=== PATIENT | female | born 1985 | race Caucasian/White ===

== ENCOUNTER 2017-07-16 10:47 | Emergency (ER) | payer OTHER ==
--- NOTE | 2017-07-16 11:44 | EDPHY ---
H & P Stated Complaint: COUGH, WHEEZING X 5 DAYS HPI/ROS: Chief complaint: Cold symptoms History of present illness: This is a 32-year-old female who presents to the emergency department for cold symptoms. She reports fever, runny nose, nasal congestion, cough and some body aches. She has developed a slight sore throat today. She denies associated signs or symptoms including no trouble breathing, no rash. She works in the healthcare industry. She did receive a flu shot this year. Review of systems: A 10 point review of systems was obtained and other than described above was negative - Personal History Current Tetanus/Diphtheria Vaccine: Yes Current Tetanus Diphtheria and Acellular Pertussis (TDAP): Yes - Medical/Surgical History Hx Asthma: Yes Hx Chronic Respiratory Disease: No Hx Diabetes: No Hx Cardiac Disease: No Hx Renal Disease: No Hx Cirrhosis: No Hx Alcoholism: No Hx HIV/AIDS: No Hx Splenectomy or Spleen Trauma: No - Social History Smoking Status: Never smoked - Physical Exam Exam: General Appearance: Alert, no distress. Eyes: Pupils equal and round no pallor or injection. ENT, Mouth: Tympanic membranes, external auditory canals, external ears and surrounding soft tissue including over the mastoids are unremarkable. Nasopharynx is not injected. There is no rhinorrhea. Oropharynx is mildly injected. There is no edema. There is no exudate. There is no asymmetry. The uvula is midline. No elevation of the tongue. There is no hoarseness, no drooling, no trismus, no stridor. Respiratory: There are no retractions, lungs are clear to auscultation. Cardiovascular: Regular rate and rhythm. Neurological: Alert and oriented x4. Strength and sensation intact and symmetrical. No meningismus. Skin: Warm and dry, no rashes. Musculoskeletal: Neck is supple non tender. Extremities are symmetrical, full range of motion. Psychiatric: Patient is oriented X 3, there is no agitation. Constitutional: Initial Vital Signs Temperature (C) 36.9 C 07/16/17 10:59 Heart Rate 91 07/16/17 10:59 Respiratory Rate 16 07/16/17 10:59 Blood Pressure 110/92 H 07/16/17 10:59 O2 Sat (%) 97 07/16/17 10:59 O2 Delivery Mode Room Air Allergies/Adverse Reactions: morphine Allergy (Verified 07/16/17 10:58) Home Medications: Medication Instructions Recorded Codeine Phosphate/Guaifenesin 5 - 10 ml PO Q6 PRN #120 ml 07/16/17 [Codeine-Guaifen 10-100 mg/5 ml] Medical Decision Making - Diagnostics Imaging Results: Imaging Impressions Chest X-Ray 07/16/17 11:11 Impression: No acute thoracic abnormality. Imaging: I viewed and interpreted images myself ED Course/Re-evaluation: Patient seen under the supervision of my secondary supervising physician Dr. Dick Vasquez. Patient presents to the emergency room for evaluation of cold symptoms. She is nontoxic. She is positive for flu A. She has been sick for 5 days, she is not a candidate for antiviral therapy. Home care is discussed. Return precautions are given. Patient voiced understanding and agreement with plan. Differential Diagnosis: Included but not limited to influenza, pneumonia, bronchitis, URI - Data Points Laboratory Results: 07/16/17 11:05 Nasal Influenza A PCR FLU A DETECTED (NEGATIVE) Nasal Influenza B PCR NEGATIVE FOR FLU B (NEGATIVE) Departure - Departure Disposition: Home, Routine, Self-Care Clinical Impression: Influenza A Condition: Good Instructions: Influenza (ED) Additional Instructions: Follow-up with your primary care doctor for recheck If symptoms worsen or new symptoms develop return to the emergency room for recheck Referrals: NELLIE MIRZA [Primary Care Provider] - As per Instructions Prescriptions: Codeine Phosphate/Guaifenesin [Codeine-Guaifen 10-100 mg/5 ml] 5 - 10 ml PO Q6 PRN #120 ml PRN Reason: Cough, Severe
[2017-07-16 12:12] VITALS: BP 122/78; PULSE 92; RESP 18; TEMP 99; O2SAT 96
== END 2017-07-16 12:10 | disposition home or self-care (01) ==
DX: J10.1 Influenza due to other identified influenza virus with other respiratory manifestations (principal); J45.909 Unspecified asthma, uncomplicated

== ENCOUNTER 2017-09-05 14:24 | Emergency (ER) | payer OTHER ==
[2017-09-05 14:30] VITALS: BP 99/68; PULSE 74; RESP 18; TEMP 97.5; O2SAT 97
--- NOTE | 2017-09-05 14:32 | EDPHY ---
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 She believes she may be allergic to the nuñez. She has never had any reaction to 4 hr in the past. Denies anaphylaxis or other environmental allergies. She has no history of lung disease. LMP 1-2 weeks ago. She took 25 mg of Benadryl prior to arrival. Modifying Factors: Benadryl Comment: ROS: see HPI Constitutional: No fever, no chills, no weight loss Eyes: No blurred vision Respiratory: No shortness of breath, no cough Cardiovascular: No chest pain Gastrointestinal: No nausea, no vomiting, no diarrhea Genitourinary: No dysuria Extremities: No myalgias Neurologic: No weakness, no numbness Skin: No rashes Hematologic: No bruising, no bleeding MEDICAL/SURGICAL/SOCIAL HISTORY: Medical history: Depression Surgical history: Social history: Works at [employer]. CONSTITUTIONAL: Extremely pleasant adult white female awake and alert, no obvious distress HEENT: Atraumatic and normocephalic, PERRL, EOMI. Tympanic membranes clear. Oropharynx clear, no exudate and moist pink mucosa. Airway patent. No lymphadenopathy. No meningismus. Cardiovascular: Normal S1/S2, regular rate, regular rhythm, without murmur rub or gallop. PULMONARY/CHEST: Symmetrical and nontender. Clear to auscultation bilaterally. Good air movement. No accessory muscle usage. ABDOMEN: Soft, nondistended, nontender, no rebound, no guarding, no peritoneal signs, no masses or organomegaly. No CVAT. EXTREMITIES: 2/2 pulses, strength 5/5, no deformities, no clubbing, no cyanosis or edema. NEUROLOGICAL: no focal neuro deficits. GCS 15. SKIN: Warm and dry, hives noted to bilateral upper extremities and chest; blanches with palpation. No vesicles. No petechiae. no erythema. no rash. Good capillary refill. Source: Patient Exam Limitations: No limitations - Personal History LMP (Females 10-55): 8-14 Days Ago Current Tetanus/Diphtheria Vaccine: Yes Current Tetanus Diphtheria and Acellular Pertussis (TDAP): Yes - Medical/Surgical History Hx Asthma: Yes Hx Chronic Respiratory Disease: No Hx Diabetes: No Hx Cardiac Disease: No Hx Renal Disease: No Hx Cirrhosis: No Hx Alcoholism: No Hx HIV/AIDS: No Hx Splenectomy or Spleen Trauma: No Other PMH: PMH: , depression - Social History Smoking Status: Never smoked Constitutional: Initial Vital Signs Temperature (C) 36.4 C 09/05/17 14:27 Heart Rate 74 09/05/17 14:27 Respiratory Rate 18 09/05/17 14:27 Blood Pressure 99/68 L 09/05/17 14:27 O2 Sat (%) 97 09/05/17 14:27 O2 Delivery Mode Room Air Allergies/Adverse Reactions: morphine Allergy (Verified 07/16/17 10:58) Home Medications: Medication Instructions Recorded CeleXA 20 MG 09/05/17 Famotidine [Pepcid 20 MG (*)] 20 mg PO BID #6 tab 09/05/17 predniSONE [predniSONE TAPER] 10 mg PO DAILY 6 Days ea 09/05/17 Medical Decision Making ED Course/Re-evaluation: No signs of cellulitis/vasculitis/airway compromise/respiratory distress/ angioedema/anaphylaxis Given p.o. Prednisone, p. O. Benadryl, p.o. Pepcid Monitored for over an hour with improvement of symptoms. Work note provided. I do not feel that EpiPen is warranted at this time. This patient was seen under the supervision of my secondary supervising physician. I evaluated care for this patient independently. Differential Diagnosis: Differential diagnosis includes contact dermatitis, allergic reaction, anaphylaxis. - Data Points Medications Given: Discontinued Medications Diphenhydramine HCl (Benadryl) 25 mg PO EDNOW ONE Stop: 09/05/17 14:37 Last Admin: 09/05/17 14:39 Dose: 25 mg Famotidine (Pepcid) 40 mg PO EDNOW ONE Stop: 09/05/17 14:37 Last Admin: 09/05/17 14:41 Dose: 40 mg Prednisone (Prednisone) 60 mg PO EDNOW ONE Stop: 09/05/17 14:37 Last Admin: 09/05/17 14:38 Dose: 60 mg Departure - Departure Disposition: Home, Routine, Self-Care Clinical Impression: Hives Condition: Good Instructions: Urticaria (ED), Allergies (ED), Cold Compress or Soak (ED) Additional Instructions: Take Benadryl 25-50 mg every 6 hours as needed for pruritus/allergic reaction. If you have any worsening of symptoms; return to the emergency room immediately for follow-up. It would be beneficial to follow up with your primary care and/or an bin worker for skin testing to determine etiology. Referrals: NELLIE MIRZA [Primary Care Provider] - As per Instructions Stand Alone Forms: Work Excuse Prescriptions: Famotidine [Pepcid 20 MG (*)] 20 mg PO BID #6 tab predniSONE [predniSONE TAPER] 10 mg PO DAILY 6 Days ea
[2017-09-05] MEDS ORDERED: predniSONE 20 MG TAB PO ONE (14:36)
[2017-09-05] MEDS ORDERED: FAMOTIDINE 20 MG TAB PO ONE (14:36)
[2017-09-05] MEDS ORDERED: diphenhydrAMINE 25 MG CAP PO ONE ×2 (14:36→14:37)
[2017-09-05] MEDS ORDERED: predniSONE 20 MG TAB ONE (14:37)
== END 2017-09-05 15:23 | disposition home or self-care (01) ==
DX: L50.9 Urticaria, unspecified (principal); J45.909 Unspecified asthma, uncomplicated
CPT/HCPCS: J7512